=== PATIENT | female | born 1970 | race Caucasian/White ===

== ENCOUNTER 2020-01-04 19:28 | Emergency (ER) | payer MEDICAID ==
[~2020-01-04] VITALS: Ht 157.5 cm; Wt 68.0 kg
--- NOTE | 2020-01-04 20:18 | NUR ---
PT AAOX4. BIBSELF C/O R SHOULDER AND ARM PAIN THAT RADIATED TO LEGS. 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 PA AT BEDSIDE FOR EVAL. AWAITING ORDERS.
[2020-01-04] MEDS ORDERED: DIAZEPAM 5 MG TABLET ONE (20:29)
[2020-01-04] MEDS ORDERED: DEXAMETHASONE SOD PHOSPHATE 10 MG/ML VIAL ONE (20:29)
[2020-01-04] MEDS ORDERED: KETOROLAC TROMETHAMINE INJ 30 MG/ML VIAL ONE (20:29)
[2020-01-04] MEDS ORDERED: KETOROLAC TROMETHAMINE INJ 60 MG/2 ML VIAL IM ONE (20:30)
[2020-01-04] MEDS ORDERED: DIAZEPAM 10 MG TABLET PO ONE (20:30)
[2020-01-04] MEDS ORDERED: DEXAMETHASONE SOD PHOSPHATE 4 MG/ML VIAL IM ONE (20:30)
--- NOTE | 2020-01-04 20:31 | NUR ---
EMT AT BEDSIDE FOR EKG
--- NOTE | 2020-01-04 21:01 | NUR ---
SPOKE TO PT, STATED PAIN LEVEL WENT DOWN. 05/19.
--- NOTE | 2020-01-04 21:44 | NUR ---
Patient discharged to home in stable condition. Written and verbal after care instructions given. Patient verbalizes understanding of instruction and RX. Pt ambulated with steady gait. vss.
[2020-01-04 21:45] VITALS: BP 122/72
== END 2020-01-04 21:45 | disposition home or self-care (01) ==
LOC: ER 19:32
DX: M54.2 Cervicalgia (principal); M25.552 Pain in left hip; M25.511 Pain in right shoulder; M25.512 Pain in left shoulder; E11.9 Type 2 diabetes mellitus without complications; I10 Essential (primary) hypertension; Z88.5 Allergy status to narcotic agent; Z88.6 Allergy status to analgesic agent
CPT/HCPCS: 71045; 93005; 96372 ×2; 99284; J1100; J1885

== ENCOUNTER 2020-01-26 14:51 | Emergency (ER) | payer MEDICAID ==
[~2020-01-26] VITALS: Ht 154.9 cm; Wt 72.6 kg
--- NOTE | 2020-01-26 15:45 | NUR ---
Patient came in to the er c/o abd pain x 1 week, 7/10 pain scale. On room air, breathing evenly and unlabored. connected to the montior and pulse ox. kept comfortable, will continue to montiro accordingly.
--- NOTE | 2020-01-26 16:38 | NUR ---
urine collected and sent to lab
[2020-01-26] MEDS ORDERED: KETOROLAC TROMETHAMINE INJ 30 MG/ML VIAL IV ONE (17:00)
[2020-01-26] MEDS ORDERED: IV NS 0.9% 1,000 ML BAG IV ONE (17:00)
[2020-01-26 17:15] LABS: APPEARANCE,URINE CLEAR (CLEAR); BILIRUBIN,URINE NEGATIVE (NEGATIVE); BLOOD, URINE TRACE-INTA Ery/uL (NEGATIVE); COLOR,URINE YELLOW (YELLOW); KETONES,URINE NEGATIVE (NEGATIVE); LEUKOCYTE ESTERASE ,URINE TRACE (NEGATIVE); NITRITE, URINE NEGATIVE (NEGATIVE); PROTEIN,URINE NEGATIVE (NEGATIVE); UGLUCOSE >=1000 mg/dL (NEGATIVE); UROBILINOGEN,URINE 0.2 EU/dL (0.2)
[2020-01-26 17:17] LABS: BASOPHILS % (AUTO) 0.3 % (0.0-2.0); EOSINOPHILS % (AUTO) 2.9 % (0.0-6.0); HEMATOCRIT 45 % (33-45); HEMOGLOBIN 14.6 g/dL (11.5-14.8); LYMPHOCYTES # (AUTO) 2.4 /CMM (0.8-4.8); LYMPHOCYTES % (AUTO) 22.2 % (20.0-44.0); MEAN CORPUSCULAR HGB CONC 33 g/dl (31.0-36.0); MEAN CORPUSCULAR VOLUME 81 fL (82-100); MONOCYTES # (AUTO) 0.8 /CMM (0.1-1.30); MONOCYTES % (AUTO) 7.6 % (2.0-12.0); NEUTROPHILS # (AUTO) 7.3 /CMM (1.8-8.9); PLATELET COUNT (AUTO) 240 /CMM (150-450); RED BLOOD CELL COUNT(AUTO) 5.56 MIL/uL (4.0-5.2); WHITE BLOOD COUNT (AUTO) 10.9 K/uL (4.3-11.0)
[2020-01-26 17:25] LABS: BACTERIA,URINE Few /HPF (None Seen); SQUAMOUS EPITHELIAL CELL,UR Few /HPF (None Seen)
[2020-01-26 17:33] LABS: CALCIUM, SERUM 9.2 mg/dL (8.5-10.1); CREATININE 0.8 mg/dL (0.6-1.3); POTASSIUM 3.6 mmol/L (3.5-5.1)
[2020-01-26 17:37] LABS: ALBUMIN 4.1 g/dL (3.4-5.0); BILIRUBIN,DIRECT 0.1 mg/dL (0.0-0.2); BILIRUBIN,TOTAL 0.4 mg/dL (0.2-1.0); TOTAL PROTEIN, SERUM 8.6 g/dL (6.4-8.2)
[2020-01-26] MEDS ORDERED: KETOROLAC TROMETHAMINE 15 MG/ML VIAL ONE (17:37)
[2020-01-26] MEDS ORDERED: IOHEXOL-300 100 ML VIAL IV ONE (17:45)
[2020-01-26] MEDS ORDERED: IV NS 0.9% 250 ML IV ONE (17:45)
--- NOTE | 2020-01-26 17:51 | NUR ---
wheeled patient via gurney accompanied by [employer] to ct
--- NOTE | 2020-01-26 18:02 | NUR ---
patient came back from ct
--- NOTE | 2020-01-26 20:37 | NUR ---
pt is medically stable for D/C. IV removed. Catheter intact and site benign. Pressure and 4x4 applied to site. No bleeding noted.Patient discharged to home in stable condition. Rx and Written and verbal after care instructions given. Patient verbalizes understanding of instruction.
[2020-01-26 21:54] VITALS: BP 139/90
== END 2020-01-26 20:37 | disposition home or self-care (01) ==
LOC: ER 14:58
DX: K57.32 Diverticulitis of large intestine without perforation or abscess without bleeding (principal); R82.81 Pyuria; E11.65 Type 2 diabetes mellitus with hyperglycemia; R31.9 Hematuria, unspecified; I10 Essential (primary) hypertension; R10.32 Left lower quadrant pain; E78.5 Hyperlipidemia, unspecified; Z88.6 Allergy status to analgesic agent
CPT/HCPCS: 36415; 74177; 80048; 80076; 81001; 84703; 85025; 87086; 96361; 96374; 99285; J1885; J7050; Q9967; 81000-TC; 87186-TC; J7030

== ENCOUNTER 2020-09-16 08:45 | Emergency (ER) | payer MEDICAID ==
[~2020-09-16] VITALS: Ht 154.9 cm; Wt 68.0 kg
[2020-09-16 08:49] VITALS: BP 111/64
--- NOTE | 2020-09-16 09:17 | NUR ---
veterinary assistant technician at bedside for exam
--- NOTE | 2020-09-16 09:32 | NUR ---
urine collected and sent to lab
[2020-09-16 09:36] LABS: BILIRUBIN,URINE Negative (NEGATIVE); COLOR,URINE YELLOW (YELLOW); LEUKOCYTE ESTERASE ,URINE Small (NEGATIVE); NITRITE, URINE Negative (NEGATIVE); PROTEIN,URINE Negative (NEGATIVE); UGLUCOSE Negative (NEGATIVE); UROBILINOGEN,URINE 0.2 EU/dL (0.2)
[2020-09-16 09:42] LABS: BACTERIA,URINE Few /HPF (None Seen); SQUAMOUS EPITHELIAL CELL,UR Few /HPF (None Seen)
[2020-09-16 09:49] LABS: BASOPHILS # (AUTO) 0.1 /CMM (0.0-0.2); BASOPHILS % (AUTO) 0.5 % (0.0-2.0); EOSINOPHILS % (AUTO) 1.7 % (0.0-6.0); HEMATOCRIT 46 % (33-45); HEMOGLOBIN 15.4 g/dL (11.5-14.8); LYMPHOCYTES # (AUTO) 4.8 /CMM (0.8-4.8); LYMPHOCYTES % (AUTO) 45.8 % (20.0-44.0); MEAN CORPUSCULAR HGB CONC 33 g/dl (31.0-36.0); MEAN CORPUSCULAR VOLUME 84 fL (82-100); MONOCYTES # (AUTO) 0.7 /CMM (0.1-1.30); MONOCYTES % (AUTO) 7.1 % (2.0-12.0); NEUTROPHILS # (AUTO) 4.7 /CMM (1.8-8.9); NEUTROPHILS % (AUTO) 44.9 % (43.0-81.0); PLATELET COUNT (AUTO) 264 /CMM (150-450); RED BLOOD CELL COUNT(AUTO) 5.51 MIL/uL (4.0-5.2); WHITE BLOOD COUNT (AUTO) 10.5 K/uL (4.3-11.0)
[2020-09-16 10:05] LABS: ALBUMIN 3.7 g/dL (3.4-5.0); BILIRUBIN,DIRECT 0.1 mg/dL (0.0-0.2); BILIRUBIN,TOTAL 0.5 mg/dL (0.2-1.0); CREATININE 0.7 mg/dL (0.6-1.3); POTASSIUM 3.9 mmol/L (3.5-5.1); TOTAL PROTEIN, SERUM 7.4 g/dL (6.4-8.2)
[2020-09-16] MEDS ORDERED: OMEP40CA13 PO (10:14)
--- NOTE | 2020-09-16 10:36 | NUR ---
Patient discharged to home in stable condition. Written and verbal after care instructions given. Patient verbalizes understanding of instruction.
== END 2020-09-16 10:36 | disposition home or self-care (01) ==
LOC: ER 08:47
DX: R10.13 Epigastric pain (principal); R10.11 Right upper quadrant pain; R10.32 Left lower quadrant pain; R11.0 Nausea; I10 Essential (primary) hypertension; E11.9 Type 2 diabetes mellitus without complications; Z88.6 Allergy status to analgesic agent
CPT/HCPCS: 36415; 76700-TC; 80048-TC; 80076-TC; 81001; 83690-TC; 85025-TC; 87086-TC; 87186-TC

== ENCOUNTER 2021-04-28 20:53 | Emergency (ER) | payer MEDICAID ==
[~2021-04-28] VITALS: Ht 154.9 cm; Wt 68.9 kg
[~2021-04-28 20:53] MED LIST: OMEP40CA21 PO
--- NOTE | 2021-04-28 22:49 | NUR ---
PT BIBS C/O DIFFUSED STOMACH PAIN RADIATING TO THE BACK, WAS PRESCRIBED ANTIBIOTICS FOR UTI 8 DAYS AGO, GIVEN CIPROFLOXACIN 500MG. HOWEVER PCP CALLED AND CANCELLED CURRENT ANTIBIOTIC AND PRESCRIBED HER CEPHALEXIN 500 MG. AFTER TAKING THE NEW ANTIBIOTIC PT STATES HER STOMACH HAS BEEN HURTING MORE X3DAYS.
[2021-04-28] MEDS ORDERED: ONDANSETRON HCL/PF 4 MG/2 ML VIAL IVP ONE (23:00)
[2021-04-28] MEDS ORDERED: KETOROLAC TROMETHAMINE INJ 30 MG/ML VIAL IV ONE (23:00)
[2021-04-28] MEDS ORDERED: IV NS 0.9% 500 ML BAG IV ONE (23:00)
[2021-04-28] MEDS ORDERED: KETOROLAC TROMETHAMINE 15 MG/ML VIAL ONE (23:15)
[2021-04-28] MEDS ORDERED: ONDANSETRON HCL/PF 4 MG/2 ML VIAL ONE (23:15)
--- NOTE | 2021-04-28 23:20 | NUR ---
PT GOING TO CT
[2021-04-28 23:24] LABS: BASOPHILS % (AUTO) 0.3 % (0.0-2.0); EOSINOPHILS % (AUTO) 2.8 % (0.0-6.0); HEMATOCRIT 45 % (33-45); HEMOGLOBIN 15.1 g/dL (11.5-14.8); LYMPHOCYTES # (AUTO) 3.5 K/uL (0.8-4.8); LYMPHOCYTES % (AUTO) 40.5 % (20.0-44.0); MEAN CORPUSCULAR HGB CONC 34 g/dl (31.0-36.0); MEAN CORPUSCULAR VOLUME 84 fL (82-100); MONOCYTES # (AUTO) 0.7 K/uL (0.1-1.30); MONOCYTES % (AUTO) 8.4 % (2.0-12.0); NEUTROPHILS # (AUTO) 4.2 K/uL (1.8-8.9); PLATELET COUNT (AUTO) 211 K/uL (150-450); RED BLOOD CELL COUNT(AUTO) 5.28 MIL/uL (4.0-5.2); WHITE BLOOD COUNT (AUTO) 8.7 K/uL (4.3-11.0)
[2021-04-28 23:30] LABS: BILIRUBIN,URINE NEGATIVE (NEGATIVE); COLOR,URINE YELLOW (YELLOW); LEUKOCYTE ESTERASE ,URINE NEGATIVE (NEGATIVE); NITRITE, URINE NEGATIVE (NEGATIVE); PH,URINE 5.5 (5.0-8.0); PROTEIN,URINE NEGATIVE (NEGATIVE); UGLUCOSE NEGATIVE (NEGATIVE); UROBILINOGEN,URINE 0.2 EU/dL (0.2)
[2021-04-28 23:43] LABS: ALANINE AMINOTRANSFERASE 62 U/L (12-78); ALBUMIN 4.2 g/dL (3.4-5.0); ALKALINE PHOSPHATASE 95 U/L (46-116); ASPARTATE AMINOTRANSFERASE 29 U/L (15-37); BILIRUBIN,DIRECT 0.1 mg/dL (0.0-0.2); BILIRUBIN,TOTAL 0.6 mg/dL (0.2-1.0); CALCIUM, SERUM 9.4 mg/dL (8.5-10.1); CARBON DIOXIDE 27 mmol/L (21-32); CHLORIDE 101 mmol/L (98-107); CREATININE 0.7 mg/dL (0.6-1.3); GLUCOSE 149 mg/dL (74-106); LIPASE 102 U/L (73-393); POTASSIUM 3.6 mmol/L (3.5-5.1); SODIUM SERUM 138 mmol/L (136-145); TOTAL PROTEIN, SERUM 8.1 g/dL (6.4-8.2); UREA NITROGEN, BLOOD 14 mg/dL (7-18)
--- NOTE | 2021-04-29 00:33 | NUR ---
Patient discharged to home in stable condition. Written and verbal after care instructions given. Patient verbalizes understanding of instruction.
[2021-04-29 03:32] VITALS: BP 143/72
[2021-04-29 22:53] LABS: BACTERIA,URINE None seen /HPF (None Seen); RBC,URINE 0-2 /HPF (0-2); SQUAMOUS EPITHELIAL CELL,UR Few /HPF (None Seen); WBC,URINE 0-2 /HPF (0-3)
== END 2021-04-29 00:35 | disposition home or self-care (01) ==
LOC: ER 20:58
DX: R10.11 Right upper quadrant pain (principal); R10.13 Epigastric pain; I10 Essential (primary) hypertension; E11.9 Type 2 diabetes mellitus without complications; Z88.5 Allergy status to narcotic agent; Z88.6 Allergy status to analgesic agent
CPT/HCPCS: 36415; 74176; 76705; 80048; 80076; 81001; 83690; 84484; 84703; 85025; 85730; 93005; 96361; 96374; 96375; 99285; J1885; J2405

== ENCOUNTER 2021-09-24 14:05 | Emergency (ER) | payer MEDICAID ==
[~2021-09-24] VITALS: Ht 152.4 cm; Wt 70.3 kg
--- NOTE | 2021-09-24 14:35 | NUR ---
DR POLO SEEING PATIENT
--- NOTE | 2021-09-24 14:44 | NUR ---
BIBS FOR C/O LEFT RIB PAIN R/T BACK X 11 DAYS. THE PATIENT RATES PAINS 8/10. PT DENIES TRAUMA. PT IS A&OX4, BREATHING EVEN AND UNLABORED ON RA.
[2021-09-24] MEDS ORDERED: ONDANSETRON HCL/PF 4 MG/2 ML VIAL IVP ONE (15:00)
[2021-09-24] MEDS ORDERED: MAG HYDROX/AL HYDROX/SIMETH 30 ML UDC PO ONE (15:00)
[2021-09-24] MEDS ORDERED: FAMOTIDINE/PF INJ 20 MG/2 ML VIAL IV ONE ×2 (15:00→15:14)
[2021-09-24] MEDS ORDERED: LIDOCAINE VISCOUS 2% UD 15 ML UDC MM ONE (15:00)
[2021-09-24] MEDS ORDERED: IV NS 0.9% 1,000 ML BAG IV ONE (15:00)
[2021-09-24] MEDS ORDERED: ONDANSETRON HCL/PF 4 MG/2 ML VIAL ONE (15:14)
[2021-09-24] MEDS ORDERED: MAG HYDROX/AL HYDROX/SIMETH 30 ML UDC ONE (15:14)
[2021-09-24] MEDS ORDERED: LIDOCAINE VISCOUS 2% UD 15 ML UDC ONE (15:14)
[2021-09-24 15:15] LABS: BASOPHILS % (AUTO) 0.3 % (0.0-2.0); EOSINOPHILS % (AUTO) 3.6 % (0.0-6.0); HEMATOCRIT 47 % (33-45); HEMOGLOBIN 15.4 g/dL (11.5-14.8); LYMPHOCYTES # (AUTO) 2.7 K/uL (0.8-4.8); LYMPHOCYTES % (AUTO) 35.2 % (20.0-44.0); MEAN CORPUSCULAR HGB CONC 33 g/dl (31.0-36.0); MEAN CORPUSCULAR VOLUME 81 fL (82-100); MONOCYTES # (AUTO) 0.6 K/uL (0.1-1.30); MONOCYTES % (AUTO) 7.6 % (2.0-12.0); NEUTROPHILS # (AUTO) 4.2 K/uL (1.8-8.9); NEUTROPHILS % (AUTO) 53.3 % (43.0-81.0); PLATELET COUNT (AUTO) 284 K/uL (150-450); RED BLOOD CELL COUNT(AUTO) 5.78 MIL/uL (4.0-5.2); WHITE BLOOD COUNT (AUTO) 7.8 K/uL (4.3-11.0)
[2021-09-24 15:15] LABS: BILIRUBIN,URINE NEGATIVE (NEGATIVE); COLOR,URINE YELLOW (YELLOW); LEUKOCYTE ESTERASE ,URINE SMALL (NEGATIVE); NITRITE, URINE NEGATIVE (NEGATIVE); PH,URINE 5.5 (5.0-8.0); PROTEIN,URINE NEGATIVE (NEGATIVE); UGLUCOSE NEGATIVE (NEGATIVE); UROBILINOGEN,URINE 0.2 EU/dL (0.2)
[2021-09-24 15:27] LABS: BACTERIA,URINE 4+ /HPF (None Seen); RBC,URINE 0-2 /HPF (0-2); SQUAMOUS EPITHELIAL CELL,UR Few /HPF (None Seen); WBC,URINE 21-50 /HPF (0-3)
[2021-09-24 15:37] LABS: CALCIUM, SERUM 9.6 mg/dL (8.5-10.1); CREATININE 0.7 mg/dL (0.6-1.3); POTASSIUM 3.8 mmol/L (3.5-5.1)
--- NOTE | 2021-09-24 15:41 | NUR ---
BACK FROM CT
[2021-09-24 15:42] LABS: ALBUMIN 4.6 g/dL (3.4-5.0); BILIRUBIN,DIRECT 0.1 mg/dL (0.0-0.2); BILIRUBIN,TOTAL 0.6 mg/dL (0.2-1.0); TOTAL PROTEIN, SERUM 8.6 g/dL (6.4-8.2)
[2021-09-24] MEDS ORDERED: NITR100C PO (16:16)
[2021-09-24] MEDS ORDERED: NAPR-1009 PO (16:16)
--- NOTE | 2021-09-24 16:46 | NUR ---
Patient discharged to home in stable condition. Written and verbal after care instructions given. Patient verbalizes understanding of instruction.
[2021-09-24 16:47] VITALS: BP 126/79
== END 2021-09-24 16:48 | disposition home or self-care (01) ==
LOC: ER 14:08
DX: N39.0 Urinary tract infection, site not specified (principal); R10.12 Left upper quadrant pain; I10 Essential (primary) hypertension; E11.9 Type 2 diabetes mellitus without complications; E78.5 Hyperlipidemia, unspecified; Z90.711 Acquired absence of uterus with remaining cervical stump; Z88.8 Allergy status to other drugs, medicaments and biological substances; Z79.899 Other long term (current) drug therapy
CPT/HCPCS: 36415; 71100; 74176; 80048; 80076; 81001; 85025; 87077; 87086; 87186; 96361; 96374; 96375; 99285; J2405; J3490; J7030

== ENCOUNTER 2022-03-11 20:27 | Emergency (ER) | payer MEDICAID, OTHER ==
[~2022-03-11] VITALS: Ht 162.6 cm; Wt 70.3 kg
[~2022-03-11 20:27] MED LIST changes: +NAPR-1009 PO; +NITR100C PO
--- NOTE | 2022-03-11 20:45 | NUR ---
TO ER BED 2. BIBSELF C/O RIGHT SIDE FLANK PAIN X 3 DAY . TOOK OTC MEDS WITH LITTLE RELIEF. PT IS ALERT AND ORIENTED. RR EVEN AND NON LABORED. CONNECTED TO POX AND HEART MONITOR. AWAITING MD FUNEZ
--- NOTE | 2022-03-11 20:48 | NUR ---
URINE COLLECTED AND SENT TO LAB
[2022-03-11 21:06] LABS: BASOPHILS % (AUTO) 0.2 % (0.0-2.0); EOSINOPHILS % (AUTO) 4.6 % (0.0-6.0); HEMATOCRIT 43 % (33-45); HEMOGLOBIN 14.3 g/dL (11.5-14.8); LYMPHOCYTES # (AUTO) 3.5 K/uL (0.8-4.8); LYMPHOCYTES % (AUTO) 44.9 % (20.0-44.0); MEAN CORPUSCULAR HGB CONC 33 g/dl (31.0-36.0); MEAN CORPUSCULAR VOLUME 83 fL (82-100); MONOCYTES # (AUTO) 0.5 K/uL (0.1-1.30); MONOCYTES % (AUTO) 6.8 % (2.0-12.0); NEUTROPHILS # (AUTO) 3.4 K/uL (1.8-8.9); NEUTROPHILS % (AUTO) 43.5 % (43.0-81.0); PLATELET COUNT (AUTO) 214 K/uL (150-450); RED BLOOD CELL COUNT(AUTO) 5.15 MIL/uL (4.0-5.2); WHITE BLOOD COUNT (AUTO) 7.8 K/uL (4.3-11.0)
[2022-03-11 21:13] LABS: CALCIUM, SERUM 9.2 mg/dL (8.5-10.1); POTASSIUM 3.9 mmol/L (3.5-5.1)
[2022-03-11 21:24] LABS: BILIRUBIN,URINE NEGATIVE (NEGATIVE); COLOR,URINE YELLOW (YELLOW); LEUKOCYTE ESTERASE ,URINE 1+ (NEGATIVE); NITRITE, URINE NEGATIVE (NEGATIVE); PROTEIN,URINE NEGATIVE (NEGATIVE); UGLUCOSE NEGATIVE (NEGATIVE); UROBILINOGEN,URINE 0.2 EU/dL (0.2)
[2022-03-11] MEDS ORDERED: KETOROLAC TROMETHAMINE INJ 30 MG/ML VIAL ONE (21:28)
[2022-03-11] MEDS ORDERED: IV NS 0.9% 500 ML BAG IV ONE (21:30)
[2022-03-11] MEDS ORDERED: KETOROLAC TROMETHAMINE INJ 30 MG/ML VIAL IV ONE (21:30)
[2022-03-11 21:31] LABS: BACTERIA,URINE Few /HPF (None Seen); RBC,URINE 0-2 /HPF (0-2); SQUAMOUS EPITHELIAL CELL,UR Few /HPF (None Seen)
[2022-03-11 21:31] LABS: ALBUMIN 3.8 g/dL (3.4-5.0); BILIRUBIN,DIRECT 0.1 mg/dL (0.0-0.2); BILIRUBIN,TOTAL 0.3 mg/dL (0.2-1.0); TOTAL PROTEIN, SERUM 7.3 g/dL (6.4-8.2)
--- NOTE | 2022-03-11 21:39 | NUR ---
IV LINE ESTABLISHED, [id number]
--- NOTE | 2022-03-11 21:51 | NUR ---
PT TAKEN TO CT SCAN VIA JUAN C
[2022-03-11] MEDS ORDERED: NITR100C6 PO (22:54)
--- NOTE | 2022-03-11 23:02 | NUR ---
IV removed. Catheter intact and site benign. Pressure and 4x4 applied to site. No bleeding noted.
--- NOTE | 2022-03-11 23:03 | NUR ---
Patient discharged to home in stable condition. Written and verbal after care instructions given. Patient verbalizes understanding of instruction.
[2022-03-11 23:14] VITALS: BP 139/68
== END 2022-03-11 23:14 | disposition home or self-care (01) ==
LOC: ER 20:30
DX: N39.0 Urinary tract infection, site not specified (principal); I10 Essential (primary) hypertension; E11.9 Type 2 diabetes mellitus without complications; E78.5 Hyperlipidemia, unspecified; Z98.890 Other specified postprocedural states; Z88.6 Allergy status to analgesic agent; Z88.5 Allergy status to narcotic agent; Z79.899 Other long term (current) drug therapy
CPT/HCPCS: 99284; 74176; 96374; 85025; 80048; 87086; 83690; 80076; 81001; 36415; 85730; J1885; J7040

== ENCOUNTER 2022-09-07 02:12 | Emergency (ER) | payer OTHER ==
[~2022-09-07] VITALS: Ht 154.9 cm; Wt 68.9 kg
[~2022-09-07 02:12] MED LIST changes: +NITR100C6 PO
[2022-09-07 03:30] VITALS: BP 158/87
--- NOTE | 2022-09-07 03:30 | NUR ---
BIBSELF WITH CC OF ITCHINESS ON BILATERAL HANDS, FEET AND LEFT EYE. STARTED 12 MINUTES AGO. NO MEDS TAKEN COOK DESSERT. ON R/A WITH NO RESP DISTRESS.
[2022-09-07] MEDS ORDERED: FAMOTIDINE (20 MG) 20 MG TABLET PO ONE (04:30)
[2022-09-07] MEDS ORDERED: diphenhydrAMINE HCL 25 MG CAPSULE PO ONE (04:30)
[2022-09-07] MEDS ORDERED: diphenhydrAMINE HCL 25 MG CAPSULE ONE (04:46)
[2022-09-07] MEDS ORDERED: FAMOTIDINE (20 MG) 20 MG TABLET ONE (04:47)
[2022-09-07] MEDS ORDERED: FAMO20TA8 PO (04:59)
[2022-09-07] MEDS ORDERED: DIPH25TA25 PO (04:59)
[2022-09-07] MEDS ORDERED: LORA10TA68 PO (04:59)
--- NOTE | 2022-09-07 05:17 | NUR ---
Patient discharged to home in stable condition. RX Written and verbal after care instructions given. Patient verbalizes understanding of instruction.
== END 2022-09-07 05:19 | disposition home or self-care (01) ==
LOC: ER 02:14
DX: T78.1XXA Other adverse food reactions, not elsewhere classified, initial encounter (principal); I10 Essential (primary) hypertension; E11.9 Type 2 diabetes mellitus without complications; E78.5 Hyperlipidemia, unspecified; Z90.711 Acquired absence of uterus with remaining cervical stump; Z88.8 Allergy status to other drugs, medicaments and biological substances; Z79.899 Other long term (current) drug therapy; X58.XXXA Exposure to other specified factors, initial encounter
CPT/HCPCS: 99283; Q0163

== ENCOUNTER 2023-11-27 20:50 | Emergency (ER) | payer OTHER ==
[~2023-11-27] VITALS: Ht 154.9 cm; Wt 66.7 kg
[~2023-11-27 20:50] MED LIST changes: +DIPH25TA25 PO; +FAMO-131 PO; +FAMO20TA8 PO; +LORA10TA68 PO; +ONDA4TAB5 PO
[2023-11-27 21:27] LABS: BASOPHILS % (AUTO) 0.3 % (0.0-2.0); EOSINOPHILS # (AUTO) 0.2 K/uL (0.0-0.7); EOSINOPHILS % (AUTO) 2.1 % (0.0-6.0); HEMATOCRIT 47 % (33-45); HEMOGLOBIN 15.6 g/dL (11.5-14.8); LYMPHOCYTES % (AUTO) 30.4 % (20.0-44.0); MEAN CORPUSCULAR HEMOGLOBIN 28 PG (26.0-33.0); MEAN CORPUSCULAR HGB CONC 33 g/dl (31.0-36.0); MEAN CORPUSCULAR VOLUME 84 fL (82-100); MONOCYTES # (AUTO) 0.6 K/uL (0.1-1.30); MONOCYTES % (AUTO) 5.9 % (2.0-12.0); NEUTROPHILS % (AUTO) 61.3 % (43.0-81.0); PLATELET COUNT (AUTO) 221 K/uL (150-450); RED CELL DISTRIBUTION WIDTH 14.6 % (11.5-15.0); WHITE BLOOD COUNT (AUTO) 9.8 K/uL (4.3-11.0)
[2023-11-27 21:36] LABS: CALCIUM, SERUM 9.6 mg/dL (8.5-10.1); CARBON DIOXIDE 25 mmol/L (21-32); CHLORIDE 103 mmol/L (98-107); CREATININE 0.8 mg/dL (0.6-1.3); GLUCOSE 176 mg/dL (74-106); POTASSIUM 3.9 mmol/L (3.5-5.1); SODIUM SERUM 139 mmol/L (136-145); UREA NITROGEN, BLOOD 12 mg/dL (7-18)
[2023-11-27 21:42] LABS: ALANINE AMINOTRANSFERASE 39 U/L (12-78); ALBUMIN 4.3 g/dL (3.4-5.0); ALKALINE PHOSPHATASE 102 U/L (46-116); ASPARTATE AMINOTRANSFERASE 18 U/L (15-37); BILIRUBIN,TOTAL 0.3 mg/dL (0.2-1.0); LIPASE 43 U/L (16-77)
[2023-11-27] MEDS ORDERED: OMEP40CA21 PO (22:36)
[2023-11-27] MEDS ORDERED: PANTOPRAZOLE 40 MG VIAL ONE (22:47)
[2023-11-27] MEDS ORDERED: MAG HYDROX/AL HYDROX/SIMETH 30 ML UDC ONE (22:47)
[2023-11-27] MEDS ORDERED: ACETAMINOPHEN ES 500 MG TABLET ONE (22:48)
[2023-11-27] MEDS ORDERED: LIDOCAINE VISCOUS 2% UD 15 ML UDC ONE (22:48)
[2023-11-27] MEDS: PANTOPRAZOLE 40 MG TABLET.DR PO ONE (22:49)
[2023-11-27] MEDS: LIDOCAINE VISCOUS 2% UD 15 ML UDC MM ONE (22:49)
[2023-11-27] MEDS: MAG HYDROX/AL HYDROX/SIMETH 30 ML UDC PO ONE (22:49)
[2023-11-27] MEDS: ACETAMINOPHEN ES 500 MG TABLET PO ONE (22:49)
[2023-11-27] MEDS ORDERED: PANTOPRAZOLE 40 MG TABLET.DR PO ONE (22:51)
[2023-11-27 22:59] VITALS: BP 128/80; TEMP 98.1; O2SAT 98
== END 2023-11-27 22:59 | disposition home or self-care (01) ==
LOC: ER 20:53
DX: K21.9 Gastro-esophageal reflux disease without esophagitis (principal); R10.13 Epigastric pain; I10 Essential (primary) hypertension; E11.9 Type 2 diabetes mellitus without complications; E78.5 Hyperlipidemia, unspecified; Z90.711 Acquired absence of uterus with remaining cervical stump; Z88.5 Allergy status to narcotic agent; Z88.6 Allergy status to analgesic agent; Z88.8 Allergy status to other drugs, medicaments and biological substances
CPT/HCPCS: 36415; 71045-TC; 80048-TC; 80076-TC; 83690-TC; 83880; 84484-TC; 85025-TC; J2470

== ENCOUNTER 2023-11-29 10:52 | Emergency (ER) | payer OTHER ==
[~2023-11-29] VITALS: Ht 154.9 cm; Wt 66.7 kg
[2023-11-29] MEDS ORDERED: LIDOCAINE 5% (PATCH) 1 EA PATCH TP STA (11:59)
[2023-11-29] MEDS ORDERED: KETOROLAC TROMETHAMINE 15 MG/ML VIAL IM ONE (12:00)
[2023-11-29] MEDS ORDERED: IBUP-1955 PO (12:02)
[2023-11-29] MEDS ORDERED: METH4TAB17 PO (12:02)
[2023-11-29] MEDS ORDERED: CYCL5TAB PO (12:02)
[2023-11-29] MEDS ORDERED: LIDO30AD10 TP (12:02)
[2023-11-29 12:28] VITALS: BP 129/79; TEMP 98.2; O2SAT 98
== END 2023-11-29 12:29 | disposition home or self-care (01) ==
LOC: ER 10:55
DX: M25.511 Pain in right shoulder (principal); R07.89 Other chest pain; E11.9 Type 2 diabetes mellitus without complications; I10 Essential (primary) hypertension; E78.5 Hyperlipidemia, unspecified; Z87.19 Personal history of other diseases of the digestive system; Z90.711 Acquired absence of uterus with remaining cervical stump; Z88.5 Allergy status to narcotic agent; Z88.6 Allergy status to analgesic agent; Z88.8 Allergy status to other drugs, medicaments and biological substances
CPT/HCPCS: 73030-TC

== ENCOUNTER 2024-02-17 08:12 | Emergency (ER) | payer OTHER ==
[~2024-02-17] VITALS: Ht 154.9 cm; Wt 68.9 kg
[~2024-02-17 08:12] MED LIST changes: +CYCL5TAB PO; +IBUP-1955 PO; +LIDO30AD10 TP; +METH4TAB17 PO
[2024-02-17 08:47] LABS: BASOPHILS % (AUTO) 0.4 % (0.0-2.0); EOSINOPHILS # (AUTO) 0.2 K/uL (0.0-0.7); EOSINOPHILS % (AUTO) 2.4 % (0.0-6.0); HEMATOCRIT 48 % (33-45); HEMOGLOBIN 15.9 g/dL (11.5-14.8); LYMPHOCYTES # (AUTO) 2.1 K/uL (0.8-4.8); LYMPHOCYTES % (AUTO) 22.8 % (20.0-44.0); MEAN CORPUSCULAR HEMOGLOBIN 28 PG (26.0-33.0); MEAN CORPUSCULAR HGB CONC 33 g/dl (31.0-36.0); MEAN CORPUSCULAR VOLUME 84 fL (82-100); MONOCYTES # (AUTO) 0.6 K/uL (0.1-1.30); MONOCYTES % (AUTO) 5.9 % (2.0-12.0); NEUTROPHILS # (AUTO) 6.4 K/uL (1.8-8.9); NEUTROPHILS % (AUTO) 68.5 % (43.0-81.0); PLATELET COUNT (AUTO) 233 K/uL (150-450); RED BLOOD CELL COUNT(AUTO) 5.68 MIL/uL (4.0-5.2); RED CELL DISTRIBUTION WIDTH 14.3 % (11.5-15.0); WHITE BLOOD COUNT (AUTO) 9.3 K/uL (4.3-11.0)
[2024-02-17 08:57] LABS: CALCIUM, SERUM 9.1 mg/dL (8.5-10.1); CREATININE 0.6 mg/dL (0.6-1.3); POTASSIUM 4.2 mmol/L (3.5-5.1)
[2024-02-17] MEDS ORDERED: CYCLOBENZAPRINE 10 MG TABLET ONE (09:11)
[2024-02-17] MEDS: CYCLOBENZAPRINE 10 MG TABLET PO ONE (09:17)
[2024-02-17 09:32] LABS: APPEARANCE,URINE CLEAR (CLEAR); BILIRUBIN,URINE NEGATIVE (NEGATIVE); BLOOD, URINE NEGATIVE Ery/uL (NEGATIVE); COLOR,URINE YELLOW (YELLOW); KETONES,URINE NEGATIVE (NEGATIVE); LEUKOCYTE ESTERASE ,URINE NEGATIVE (NEGATIVE); NITRITE, URINE NEGATIVE (NEGATIVE); PROTEIN,URINE NEGATIVE (NEGATIVE); UGLUCOSE NEGATIVE (NEGATIVE); UROBILINOGEN,URINE 0.2 EU/dL (0.2)
[2024-02-17] MEDS ORDERED: MELO-107 PO (10:22)
[2024-02-17 10:32] VITALS: BP 133/81; TEMP 98.5; O2SAT 98
== END 2024-02-17 10:32 | disposition home or self-care (01) ==
LOC: ER 08:19
DX: M77.9 Enthesopathy, unspecified (principal); M16.0 Bilateral primary osteoarthritis of hip; E11.9 Type 2 diabetes mellitus without complications; E78.5 Hyperlipidemia, unspecified; I10 Essential (primary) hypertension; Z79.899 Other long term (current) drug therapy; Z88.5 Allergy status to narcotic agent
CPT/HCPCS: 36415; 72170-TC; 80048-TC; 85025-TC

== ENCOUNTER 2024-02-24 23:05 | Emergency (ER) | payer OTHER ==
[~2024-02-24] VITALS: Ht 154.9 cm; Wt 68.0 kg
[~2024-02-24 23:05] MED LIST changes: +MELO-107 PO
[2024-02-24 23:56] LABS: APPEARANCE,URINE CLEAR (CLEAR); BILIRUBIN,URINE NEGATIVE (NEGATIVE); BLOOD, URINE NEGATIVE Ery/uL (NEGATIVE); COLOR,URINE YELLOW (YELLOW); KETONES,URINE NEGATIVE (NEGATIVE); LEUKOCYTE ESTERASE ,URINE NEGATIVE (NEGATIVE); NITRITE, URINE NEGATIVE (NEGATIVE); PH,URINE 6.5 (5.0-8.0); PROTEIN,URINE NEGATIVE (NEGATIVE); UGLUCOSE NEGATIVE (NEGATIVE); UROBILINOGEN,URINE 0.2 EU/dL (0.2)
[2024-02-24] MEDS ORDERED: ONDANSETRON HCL/PF 4 MG/2 ML VIAL ONE (23:58)
[2024-02-25] MEDS: ONDANSETRON HCL/PF 4 MG/2 ML VIAL IVP ONE (00:01)
[2024-02-25] MEDS: IV NS 0.9% 1,000 ML BAG IV ONE (00:01)
[2024-02-25 00:02] LABS: BASOPHILS % (AUTO) 0.4 % (0.0-2.0); EOSINOPHILS # (AUTO) 0.3 K/uL (0.0-0.7); EOSINOPHILS % (AUTO) 2.5 % (0.0-6.0); HEMATOCRIT 45 % (33-45); HEMOGLOBIN 14.6 g/dL (11.5-14.8); LYMPHOCYTES % (AUTO) 38.2 % (20.0-44.0); MEAN CORPUSCULAR HEMOGLOBIN 27 PG (26.0-33.0); MEAN CORPUSCULAR HGB CONC 33 g/dl (31.0-36.0); MEAN CORPUSCULAR VOLUME 83 fL (82-100); MONOCYTES # (AUTO) 0.6 K/uL (0.1-1.30); MONOCYTES % (AUTO) 5.7 % (2.0-12.0); NEUTROPHILS # (AUTO) 5.6 K/uL (1.8-8.9); NEUTROPHILS % (AUTO) 53.2 % (43.0-81.0); PLATELET COUNT (AUTO) 267 K/uL (150-450); RED BLOOD CELL COUNT(AUTO) 5.36 MIL/uL (4.0-5.2); RED CELL DISTRIBUTION WIDTH 14.5 % (11.5-15.0); WHITE BLOOD COUNT (AUTO) 10.5 K/uL (4.3-11.0)
[2024-02-25 00:23] LABS: CALCIUM, SERUM 9.1 mg/dL (8.5-10.1); CARBON DIOXIDE 27 mmol/L (21-32); CHLORIDE 104 mmol/L (98-107); CREATININE 0.8 mg/dL (0.6-1.3); GLUCOSE 128 mg/dL (74-106); POTASSIUM 4.1 mmol/L (3.5-5.1); SODIUM SERUM 143 mmol/L (136-145); UREA NITROGEN, BLOOD 16 mg/dL (7-18)
[2024-02-25 00:33] LABS: ALANINE AMINOTRANSFERASE 42 U/L (12-78); ALBUMIN 3.9 g/dL (3.4-5.0); ALKALINE PHOSPHATASE 96 U/L (46-116); ASPARTATE AMINOTRANSFERASE 22 U/L (15-37); BILIRUBIN,DIRECT 0.1 mg/dL (0.0-0.2); BILIRUBIN,TOTAL 0.3 mg/dL (0.2-1.0); LIPASE 52 U/L (16-77); TOTAL PROTEIN, SERUM 7.9 g/dL (6.4-8.2)
[2024-02-25] MEDS ORDERED: IOHEXOL-300 100 ML VIAL IV ONE (00:46)
[2024-02-25] MEDS ORDERED: CT SWABBABLE VALVE TRANS SET 1 EA INFUS.SET MC ONE (00:46)
[2024-02-25] MEDS ORDERED: IV NS 0.9% 250 ML IV ONE (00:48)
[2024-02-25 02:51] VITALS: BP 125/81; TEMP 98; O2SAT 98
[2024-02-25] MEDS ORDERED: FAMO-131 PO (02:56)
[2024-02-25] MEDS ORDERED: DICY10CA37 PO (02:56)
== END 2024-02-25 02:52 | disposition home or self-care (01) ==
LOC: ER 23:06
DX: K80.50 Calculus of bile duct without cholangitis or cholecystitis without obstruction (principal); K21.9 Gastro-esophageal reflux disease without esophagitis; R10.13 Epigastric pain; R11.0 Nausea; E11.9 Type 2 diabetes mellitus without complications; E78.5 Hyperlipidemia, unspecified; I10 Essential (primary) hypertension; Z79.899 Other long term (current) drug therapy; Z88.5 Allergy status to narcotic agent
CPT/HCPCS: 36415; 71045-TC; 76705-TC; 80048-TC; 80076-TC; 83690-TC; 84484-TC; 85025-TC; J2405; J7030; J7050; Q9967

== ENCOUNTER 2025-01-03 17:27 | Emergency (ER) | payer OTHER ==
[~2025-01-03] VITALS: Ht 154.9 cm; Wt 68.9 kg
[~2025-01-03 17:27] MED LIST changes: +DICY10CA37 PO
[2025-01-03 17:42] VITALS: BP 134/82; TEMP 98
[2025-01-03] MEDS ORDERED: FLUT16SP16 BNOSTRILS (18:13)
[2025-01-03] MEDS ORDERED: MECL-159 PO (18:13)
[2025-01-03] MEDS ORDERED: CIPR500T5 PO (18:13)
[2025-01-03 18:18] VITALS: O2SAT 99
== END 2025-01-03 18:20 | disposition home or self-care (01) ==
LOC: ER 17:27
DX: J32.9 Chronic sinusitis, unspecified (principal); H60.91 Unspecified otitis externa, right ear; H92.01 Otalgia, right ear; R06.7 Sneezing; R09.81 Nasal congestion; R42 Dizziness and giddiness; E11.9 Type 2 diabetes mellitus without complications; E78.5 Hyperlipidemia, unspecified; I10 Essential (primary) hypertension; Z79.899 Other long term (current) drug therapy; Z88.5 Allergy status to narcotic agent; Z90.711 Acquired absence of uterus with remaining cervical stump

== ENCOUNTER 2025-01-10 20:12 | Emergency (ER) | payer OTHER ==
[~2025-01-10] VITALS: Ht 157.5 cm; Wt 63.5 kg
[~2025-01-10 20:12] MED LIST changes: +CIPR500T5 PO; +FLUT16SP16 BNOSTRILS; +MECL-159 PO
[2025-01-10 20:48] LABS: PLATELET COUNT (AUTO) 237 K/uL (150-450); RED BLOOD CELL COUNT(AUTO) 5.56 MIL/uL (4.0-5.2); RED CELL DISTRIBUTION WIDTH 14.5 % (11.5-15.0); WHITE BLOOD COUNT (AUTO) 10.5 K/uL (4.3-11.0)
[2025-01-10 20:52] LABS: CALCIUM, SERUM 8.7 mg/dL (8.5-10.1); CREATININE 1.0 mg/dL (0.6-1.3); SODIUM SERUM 139 mmol/L (136-145); UREA NITROGEN, BLOOD 18 mg/dL (7-18)
[2025-01-10 21:06] LABS: NT-PRO BNP < 5 pg/mL (0-125)
[2025-01-10] MEDS ORDERED: ESCI5TAB PO (21:58)
[2025-01-10] MEDS ORDERED: LORA-258 PO (21:58)
[2025-01-10 22:09] VITALS: BP 142/99; TEMP 98; O2SAT 97
== END 2025-01-10 22:09 | disposition home or self-care (01) ==
LOC: ER 20:15
DX: R07.89 Other chest pain (principal); R00.2 Palpitations; I11.9 Hypertensive heart disease without heart failure; E11.9 Type 2 diabetes mellitus without complications; R06.02 Shortness of breath; E78.5 Hyperlipidemia, unspecified; Z79.899 Other long term (current) drug therapy; Z88.5 Allergy status to narcotic agent; Z90.711 Acquired absence of uterus with remaining cervical stump
CPT/HCPCS: 36415; 71045-TC; 80048-TC; 83735-TC; 83880; 84439-TC; 84443-TC; 84484-TC; 85025-TC; 85378-TC